=== PATIENT | male | born 1975 | race Caucasian/White ===

== ENCOUNTER 2017-05-28 13:19 | Inpatient (IN) | payer BC ==
[~2017-05-28] VITALS: Ht 182.9 cm; Wt 127.9 kg
[2017-05-28] VITALS (9 sets, daily range): BP systolic 109–142; BP diastolic 79–108; BMI 38.0
--- NOTE | ~2017-05-28 | CN ---
PATIENT NAME:ELICEO GRAY MEDICAL RECORD: [id number] : [birth year] LOCATION:[id number] ADMIT DATE: 05/28/17 ACCOUNT: [id number] CONSULTING PHYSICIAN: KAREL TALLEY MD REFERRING PHYSICIAN: JACKIE SUTTON MD DATE OF CONSULTATION: 05/29/2017 CONSULT REQUESTING PHYSICIAN: Dr. Jackie Sutton. REASON FOR CONSULTATION: Multidrug overdose, hypercapnic hypoxic respiratory failure. HISTORY OF PRESENT ILLNESS: Mr. Gray is a 41-year-old gentleman. Yesterday, he took approximately 30 tablets of Valium and 45 tablet of OxyContin. The patient was having suicide attempt. The patient was brought into the ER. Now, the patient is sleepy, but he is arousable. The detail was obtained by talking to the nursing staff as well as reviewing the patient's note. 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 He also has history of hypertension. PAST SURGICAL HISTORY: He has appendectomy. He has a spine surgery. ALLERGIES: There are no known drug allergies. PRESENT MEDICATIONS: He is on Phenergan, diltiazem, hydralazine, metoprolol, diazepam, OxyContin, and hydrocodone. PERSONAL AND SOCIAL HISTORY: He is a nondrinker. FAMILY HISTORY: Not known. PHYSICAL EXAMINATION: GENERAL: The patient is now comfortable. He is of hearing. BiPAP. The patient is sleepy, but he is arousable. VITAL SIGNS: The blood pressure is 113/84, pulse is 86, respiration is 18, temperature 98.4, and SPO2 is 97% on BiPAP, 30% oxygen. HEENT: Conjunctivae pink, sclerae nonicteric. NECK: Supple, no JVD. CHEST: The chest excursion is minimal on both sides. No wheeze, no rales. HEART: Rate and rhythm regular, normal sound, no murmur. ABDOMEN: Soft. Bowel sounds present. No hepatosplenomegaly. RECTAL: Deferred. EXTREMITIES: No cyanosis, no clubbing, no pedal edema. SKIN: Warm, normal turgor. CENTRAL NERVOUS SYSTEM: There are no obvious cranial nerve abnormalities. The pupils are pinpoint. He is sleepy, but arousable. Follow commands. LABORATORY DATA: CBC: WBC 7.5, hemoglobin 11.9, hematocrit 36.8, platelet count 199. Chemistry: Sodium 139, potassium 4.1, BUN is 13, creatinine 1.2. On arrival, his creatinine was 1.9. AST is 57, ALT is 87, alkaline phosphatase 150 and albumin 3.1. IMPRESSION: 1. Acute hypoxic hypercapnic respiratory failure. CONSULT REPORT [id number] ELICEO GRAY 2. Respiratory acidosis secondary to acute hypoxic hypercapnic respiratory failure. 3. Multidrug overdose of Valium and OxyContin. 4. Suicidal attempt. 5. 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 6. Elevated liver enzymes, most likely secondary to drug overdose. RECOMMENDATIONS: 1. We will continue the BiPAP as required. Narcan and Romazicon as required. 2. DVT and GI ulcer prevention. 3. Teran catheter. 4. Follow up liver enzymes, labs and chest radiograph. At this point, we will watch him conservatively. Dr. Sutton, thank you for involving me in the care of Mr. Gray. Discuss with the family. Critical care time 45 minutes. TRANSINT:[id number] Voice Confirmation ID: [id number] DOCUMENT ID: [id number] KAREL TALLEY MD CC: JACKIE SUTTON MD [id number] DICTATION DATE: 05/29/1744 [employer] INSTRUCTOR: 05/29/17 1703 ADM IN [facility] [address] [place] [address]
[~2017-05-28 13:19] MED LIST: ACETAMINOPHEN325 MG PO; CARDIZEM CD120 MG PO; CELEXA20 MG PO; GABAPENTIN100 MG PO; HYDRALAZINE HCL50 MG PO; HYDROCODONE-APA1 TAB PO; K-DUR20 MEQ PO; LOPRESSOR25 MG PO; METOPROLOL TAR100 M1 PO; OMEPRAZOLE40 MG PO; PHENERGAN25 M1 PO; VALIUM5 MG PO; ZESTRIL20 MG PO
[2017-05-28 14:56] LABS: BASOPHILS 0.1 % (0-2); EOSINOPHILS 0.1 % (0-7); HEMATOCRIT 44.5 % (42.0-54.0); HEMOGLOBIN 14.4 g/dL (13.5-17.5); LYMPHOCYTES 10.9 % (15-50); MCH 30.7 pg (26.0-34.0); MCHC 32.4 g/dL (31.0-37.0); MCV 94.9 fL (80.0-100.0); MONOCYTES 8.3 % (2-11); NEUTROPHILS 79.6 % (40-80); PLATELET COUNT 227 10x3/uL (130-400); RBC 4.69 10x6/uL (4.20-6.10); RDW 14.1 % (11.5-14.5); WBC 9.9 10x3/uL (4.8-10.8)
[2017-05-28 15:20] LABS: ALBUMIN 4.3 g/dL (3.4-5.0); ANION GAP 12.1 mmol/L (8-16); BILIRUBIN - TOTAL 0.72 mg/dL (0.2-1.3); CALCIUM 8.8 mg/dL (8.5-10.1); CARBON DIOXIDE 32.7 mmol/L (21.0-32.0); CREATININE - SERUM 1.9 mg/dL (0.6-1.3); POTASSIUM - SERUM 3.8 mmol/L (3.5-5.1); PROTEIN - SERUM 8.9 g/dL (6.4-8.2)
--- NOTE | 2017-05-28 17:14 | NUR ---
ADMITTED FROM ER PER [facility] TRANSFER SELF TO BED. VERY DIFFICULTY TO GET AWAKE TO ANSWER QUESTIONS BUT WILL FINALLY AWAKE OBEY COMMANDS. ANSWER QUESTIONS. SKIN WARM AND COOL TOUCH. LUNGS CLEAR BILATERALLY. SNORING WHEN ASLEEP. ABD SOFT WITH BOWEL SOUNDS. OXYGEN AT 2 LITERS PER NC. IV RIGHT AC INFUSING WITH NARCAN 2MG IN 500 ML OF NS AT 100 ML HOUR. NS OPEN INFUSING. NO EDEMA NOTED IN EXTREMITIES. LEFT HIM, STATES HE DID A STUPID THING. NEPHKULWINDER FAJARDO IS TO BE HIS EMERGENCY CONTACT HE DOES NOT KNOW HIS PHONE NUMBER HE DOES NOT HAVE HIS PHONE WITH HIM. ONLY PERSONAL ITEMS ARE A CANE AND SHOES PAIR OF SHORTS. HEAD OF BED ELEVATED . DENIES ANY ALLERGIES. NODES HEAD TO QUESTIONS. MONITOR ST. PATIENT HAS LOVE NOT PAIN WRITTEN ON HIS LEFT LEG. LOVE WRITTEN ON RIGHT LEG. NO FAMILY AVAILABLE IN WAITING ROOM
--- NOTE | 2017-05-28 18:54 | NUR ---
PT APNIC AT TIMES, DIFFICULT TO AWAKEN, ABG'S DRAWN. BIPAP PLACED
--- NOTE | 2017-05-28 19:00 | NUR ---
Received patient resting in bed with eyes closed, assessment completed per flowsheet. Patient is AO x4, lethargic and responds to voice. Affect is flat and withdrawn, states "going through divorce" and "meant to " Eyes PERRLA @ 2mm with sluggish response, sclera is white. S1/S2 noted NSR on telemetry with HR 91, rhythmic and regular. Breathing is even and unlabored on 40% BiPAP with O2 sat 98%, lung sounds clear bilateral upper with diminished mid and lower. Abdomen is round and soft with bowel sounds active x4, non-tender. Full ROM all extremities with weakness noted, all pulses palpable with cap refill < 3 sec. PIV R AC x2 20g noted, D5LR @ 75ml / Narcan Drip @ 100ml infusing. Patient denies pain or other needs at this time, all VSS and will continue to monitor.
--- NOTE | 2017-05-28 21:00 | NUR ---
Visitors at bedside, all questions answered to satisfaction. Patient resting in bed on BiPAP, O2 decreased to 30% by RT. Denies pain or other needs at this time, all VSS and will continue to monitor.
--- NOTE | 2017-05-28 23:00 | NUR ---
Reassessment completed per flowsheet, patient resting in bed with eyes closed. S1/S2 noted NSR on telemetry with HR 91, rhythmic and regular. Breathing is even and unlabored on 30% BiPAP with O2 sat 98%. Patient arouses to voice but remains lethargic, AO x4 then returns quickly to sleep. All pulses palpable with cap refill < 3 sec, slight weakness noted all extremities. Denies pain or other needs at this time, all VSS and will continue to monitor.
[2017-05-29] VITALS (25 sets, daily range): BP systolic 100–163; BP diastolic 76–108
--- NOTE | 2017-05-29 01:00 | NUR ---
Patient resting in bed with eyes closed, breathing is even and unlabored on BiPAP 30%. Patient arouses to voice and responds appropriately to questions, but still slightly lethargic and quickly returns to sleep. Patient denies pain or other needs at this time, all VSS and will continue to monitor.
--- NOTE | 2017-05-29 03:00 | NUR ---
Reassessment completed per flowsheet, patient resting in bed with eyes closed. Patient affect is flat and withdrawn, will engage in conversation but remains lethargic and returns to sleep quickly. S1/S2 noted NSR on telemetry with HR 87, rhythmic and regular. Breathing is even and unlabored on BiPAP 30% with O2 sat 98%. Full ROM all extremities with weakness noted, all pulses palpable with cap refill < 3 sec. Denies pain or other needs at this time, all VSS and will continue to monitor.
[2017-05-29 04:36] LABS: BASOPHILS 0.3 % (0-2); EOSINOPHILS 1.7 % (0-7); HEMATOCRIT 36.8 % (42.0-54.0); HEMOGLOBIN 11.9 g/dL (13.5-17.5); IMMATURE GRANULOCYTES 0.7 % (0-5); MCH 30.6 pg (26.0-34.0); MCHC 32.3 g/dL (31.0-37.0); MCV 94.6 fL (80.0-100.0); MEAN PLATELET VOLUME 10.5 fL (7.4-10.4); MONOCYTES 9.3 % (2-11); PLATELET COUNT 199 10x3/uL (130-400); RBC 3.89 10x6/uL (4.20-6.10); RDW 13.9 % (11.5-14.5); WBC 7.5 10x3/uL (4.8-10.8)
[2017-05-29 04:56] LABS: ALBUMIN 3.1 g/dL (3.4-5.0); ANION GAP 9.2 mmol/L (8-16); BILIRUBIN - TOTAL 0.45 mg/dL (0.2-1.3); CALCIUM 8.1 mg/dL (8.5-10.1); CARBON DIOXIDE 29.9 mmol/L (21.0-32.0); CREATININE - SERUM 1.2 mg/dL (0.6-1.3); POTASSIUM - SERUM 4.1 mmol/L (3.5-5.1); PROTEIN - SERUM 6.8 g/dL (6.4-8.2)
--- NOTE | 2017-05-29 09:49 | NUR ---
DR TALLEY HERE, REP[ORTED THAT PT HAS NOT VOIDED. ORDERED TO PLACE FCATH. PT NOW IS ATTEMPTING TO USE URINAL.
--- NOTE | 2017-05-29 10:37 | NUR ---
Patient Name: ELICEO GRAY Admission Status: ER Accout number: [id number] Admission Date: 05-28-2017 : 1975 Admission Diagnosis: Attending: HUYEN Current LOS: 1 Planned Disposition: Psych facility Primary Insurance: UNINSURED DISCOUNT PLAN Discharge Planning Comments: Referral called to Heather with [facility] to assist with psych placement. Heather will come evaluate patient today. CM will follow & assist as needed. An/Syq 13 Nav/C2 Operator: Sarah Baptiste
--- NOTE | 2017-05-29 10:51 | NUR ---
PT IS UNABLE TO VOID, ASSISTED TO STANDING POSITION AND PT STILL UNABLE TO VOID, FC PLACED.
[2017-05-29 12:14] LABS: APPEARANCE HAZY (CLEAR); BILIRUBIN NEGATIVE (NEGATIVE); COLOR YELLOW (YELLOW); GLUCOSE NEGATIVE (NEGATIVE); KETONE NEGATIVE (NEGATIVE); LEUKOCYTE ESTERASE NEGATIVE (NEGATIVE); NITRITE NEGATIVE (NEGATIVE); PROTEIN NEGATIVE (NEGATIVE); SPECIFIC GRAVITY 1.025 (1.005-1.020); UROBILINOGEN NORMAL (NORMAL)
[2017-05-29 12:20] LABS: BACTERIA FEW /hpf (NONE SEEN); EPITHELIAL CELLS OCC /hpf (0-5); GRANULAR CAST 0-5 /lpf (NONE SEEN); MUCUS >1+ /lpf (NONE SEEN); RED CELLS - URINE 0-5 /hpf (0-5); WHITE CELLS - URINE 0-5 /hpf (0-5)
--- NOTE | 2017-05-29 14:55 | NUR ---
Patient Name: YASSINE LORENZANA Admission Status: ER Accout number: [id number] Admission Date: 05-29-2017 : 09-25-1977 Admission Diagnosis:POISONING BY OTH ANTIPSYCHOT/NEUROLEPT, SELF-HARM, INIT Attending: JAZLYN Current LOS: 1 Anticipated DC Date: 05-30-2017 Planned Disposition: Psych facility Primary Insurance: UNINSURED DISCOUNT PLAN Discharge Planning Comments: CM met with patient. He states he lives at home with his , Triny. He reports he is independent with all ADL's & IADL's. Discussed inpatient psych options with him. He is agreeable to go. He would like to stay local if possible. Referral faxed to [facility]. Waiting determination. CM will follow. Regional Driver: Sarah Baptiste
--- NOTE | 2017-05-29 14:56 | NUR ---
Rec'd call from [facility] with [facility] - Patient has been accepted and can transfer this afternoon via ambulance. Nursing to call report to [phone]. [address] Mena. DC order rec'd.
--- NOTE | 2017-05-29 15:01 | NUR ---
1200- PT AWAKENS EASILY, VSS, BIPAP TAKEN OFF, PT DRINKS WATER W/O PROBLEMS, BIPAP PLACED BACK ON AND PT FALLS ASLEEP QUICKLY.
--- NOTE | 2017-05-29 15:03 | NUR ---
1430- BIPAP TAKEN OFF AND PT SPOKE TO DR STOUT. BIPAP REPLACED AND PT DRIFTS OFF BACK TO SLEEP.
--- NOTE | 2017-05-29 19:00 | NUR ---
CARE RESUMED AND SHIFT ASSESSMENT COMPLETE. PATIENT RESTING WITH EYES CLOSED, AWAKENS TO VOICE. PATIENT IS ALERT AND ORIENTED X4. VSS. ON 2L NC. SEE FLOWSHEET FOR MORE DETAILS. CL IN REACH, BED IN LOW POSISTION AND BED ALARM ON. DENIES NEED AT THIS TIME.
--- NOTE | 2017-05-29 20:30 | NUR ---
COWORKER, GRANDFATHER, AND NIECE CALLED FOR UPDATE, ALL PROVIDED PASSWORD, UPDATE PROVIDED. MESSAGES REPORTED TO PATIENT.
--- NOTE | 2017-05-29 21:00 | NUR ---
FAMILY HERE FOR VISITATION.
--- NOTE | 2017-05-29 21:00 | NUR ---
NO VISITORS AT THIS TIME.
--- NOTE | 2017-05-29 23:05 | NUR ---
REASSESSMENT COMPLETE, NO ACUTE CHANGES, SEE FLOWSHEET.
[2017-05-30] VITALS (16 sets, daily range): BP systolic 121–164; BP diastolic 78–105; Ht 182.9 cm; Wt 127.9 kg
--- NOTE | 2017-05-30 01:00 | NUR ---
PATIENT RESTING WELL WITH EYES CLOSED, RR EVEN AND NONLABORED. 98% O2 SAT WITH 2L O2 VIA NC.
--- NOTE | 2017-05-30 03:00 | NUR ---
REASSESSMENT COMPLETE, SEE FLOWSHEET. NO CHANGES.
--- NOTE | 2017-05-30 05:00 | NUR ---
PATIENT RESTING IN BED, REQUESTS FRESH ICE WATER. PROVIDED.
[2017-05-30 05:22] LABS: BASOPHILS 0.2 % (0-2); EOSINOPHILS 1.8 % (0-7); HEMATOCRIT 37.1 % (42.0-54.0); HEMOGLOBIN 12.5 g/dL (13.5-17.5); IMMATURE GRANULOCYTES 0.6 % (0-5); MCH 30.8 pg (26.0-34.0); MCHC 33.7 g/dL (31.0-37.0); MEAN PLATELET VOLUME 10.8 fL (7.4-10.4); MONOCYTES 8.9 % (2-11); NEUTROPHILS 53.5 % (40-80); PLATELET COUNT 190 10x3/uL (130-400); RBC 4.06 10x6/uL (4.20-6.10); WBC 6.7 10x3/uL (4.8-10.8)
[2017-05-30 05:26] LABS: MCV 91.4 fL (80.0-100.0)
[2017-05-30 05:37] LABS: ALBUMIN 3.1 g/dL (3.4-5.0); ALKALINE PHOSPHATASE 117 U/L (46-116); ALT (SGPT) 74 U/L (10-68); BILIRUBIN - TOTAL 0.81 mg/dL (0.2-1.3); CALC OSMOLALITY 270 mosm/kg (275-300); CALCIUM 8.4 mg/dL (8.5-10.1); CARBON DIOXIDE 33.4 mmol/L (21.0-32.0); CHLORIDE - SERUM 100 mmol/L (98-107); CREATININE - SERUM 1.1 mg/dL (0.6-1.3); GLUCOSE 101 mg/dL (74-106); POTASSIUM - SERUM 3.8 mmol/L (3.5-5.1); PROTEIN - SERUM 6.9 g/dL (6.4-8.2); SODIUM 136 mmol/L (136-145); UREA NITROGEN 10 mg/dL (7-18); eGFR NON AFRICAN AMERICAN 79 mL/min (90-120)
--- NOTE | 2017-05-30 06:00 | NUR ---
MOTHER AT BEDSIDE, UPDATE PROVIDED.
--- NOTE | 2017-05-30 07:10 | NUR ---
PATIENT NOW ALERT AND VERY AWAKE. STATES HE WANTS THE BRIONES OUT THAT IT IS BOTHERING HIM. 10CC BALLOON DEFALATED AND BRIONES REMOVED. REPORTED TO DAY SHIFT NURSE. WILL MONITOR URINE OUTPUT. URINAL PROVIDED.
--- NOTE | 2017-05-30 10:54 | NUR ---
* Is the patient Alert and Oriented? Yes 0 * PCP Dr. Concepcion 0 * Pharmacy [facility] [address] 0 * Preadmission Environment Home Alone 0 * List name and contact numbers for known caregivers / representatives who currently or will assist patient after discharge: Grandparents: Domingo Hardy [phone] Mother Maddie Whittington [phone] 0 * Additional services required to return to the preadmission environment? Yes 0 * Can the patient safely return to the preadmission environment? No 0 * Has this patient been hospitalized within the prior 30 days at any hospital? No Patient Name: ELICEO GRAY Admission Status: ER Accout number: [id number] Admission Date: 05-28-2017 : 1975 Admission Diagnosis:TOXIC EFFECT OF UNSP SUBSTANCE, ACCIDENTAL, INIT Attending: HUYEN Current LOS: 2 Planned Disposition: Psych facility Primary Insurance: UNINSURED DISCOUNT PLAN Discharge Planning Comments: CM met with patient to assess dc plans/needs. He is alert & oriented x 3. Patient states he lives alone & is independent with all ADL's & IADL's. 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 He is tearful regarding his current situation. Discussed inpatient psych options. He is in agreement to placement. He prefers not to go to [facility] - he states his spouse has been there in the past & they haven't helped her. Will send referral to [facility]. CM will follow. Silver Miner: Sarah Baptiste
--- NOTE | 2017-05-30 11:17 | NUR ---
Patient [facility]. Notified business office - will hold off on sending referral until information obtained.
--- NOTE | 2017-05-30 11:42 | NUR ---
RECIEVED REPORT FROM DAVID AT THIS TIME. NO ACUTE DISTRESS NOTED. WILL CONTINUE PLAN OF CARE.
--- NOTE | 2017-05-30 14:06 | NUR ---
UP IN BED WATCHING TV AT THIS TIME. NO ACUTE DISTRESS NOTED. WILL CONTINUE PLAN OF CARE.
--- NOTE | 2017-05-30 15:28 | NUR ---
UP IN BED AWAKE AT THIS TIME VISITING WITH VISITORS. NO ACUTE DISTRESS NOTED. WILL CONTINUE PLAN OF CARE.
--- NOTE | 2017-05-30 18:52 | NUR ---
CALLED REPORT TO ALISA LOCKE RN, FOR PSYCH PLACEMENT TO [facility] IN [place]. PT WILL BE ACCEPTED BY DR HAYNES. NO ACUTE DISTRESS NOTED. WILL CONTINUE PLAN OF CARE.
--- NOTE | 2017-05-30 19:00 | NUR ---
PATIENT SITTING UP IN BED AWAITING TRANSFER FOR PSYCH PLACEMENT. IN GOOD SPIRITS. PATIENT A&O, ON ROOM AIR. LUNG SOUNDS CLEAR. NSR ON MONITOR WITH RATE OF 86. VOIDING WELL SINCE BRIONES REMOVED TODAY. PERIPHERAL PULSES +2. PERIPHERAL IV'S REMOVED X2. TIPS INTACT. DENIES NEED AT THIS TIME.
--- NOTE | 2017-05-30 21:00 | NUR ---
FAMILY AT BEDSIDE. DENY NEED AT THIS TIME.
--- NOTE | 2017-05-30 21:45 | NUR ---
[facility]S HERE TO PICK PATIENT UP.
[2017-05-30] MEDS ORDERED: LOVENOX40 MG/0.4 SC (21:46)
[2017-05-30] MEDS ORDERED: CATAPRES0.1 MG PO (21:47)
[2017-05-30] MEDS ORDERED: CYMBALTA30 MG PO (21:48)
[2017-05-30] MEDS ORDERED: CYMBALTA60 MG PO (21:49)
[2017-05-30] MEDS ORDERED: TORADOL30 MG/ML IV (21:50)
[2017-05-30] MEDS ORDERED: PROTONIX I40 MG/VIAL IV (21:50)
--- NOTE | 2017-06-02 13:11 | CN ---
PATIENT NAME:ELICEO GRAY MEDICAL RECORD: [id number] : [birth year] LOCATION:[facility].2303 ADMIT DATE: 05/28/17 ACCOUNT: [id number] CONSULTING PHYSICIAN: CAMPBELL JOHNSON MD REFERRING PHYSICIAN: JACKIE SUTTON MD DATE OF CONSULTATION: 05/29/2017 IDENTIFYING DATA: The patient is 41 years old and he is admitted to the hospital secondary to a polysubstance overdose. Apparently, he took a large number of hydrocodone and Valium. At that time, he did it with the intention of killing himself after he was upset or distressed about his leaving him. He now pauses when asked about suicidality, stares off for a long moment and then says he is not really suicidal. He adamantly denies any substance abuse and feels that there is nothing inappropriate about taking narcotics long-term for chronic back pain even though he does have a very physical job. He also does not think there is anything wrong with mixing this with the Valium. I do not know if they are prescribed by the same doctor. The patient truly is profoundly depressed and is very much minimizing this entire event. He is agreeable to psychiatric care. MENTAL STATUS EXAMINATION: The patient is awake, alert and oriented to person, place and time and is mildly mistaken about the circumstances. His mood is depressed. His affect is constricted. Thought processes are circumstantial. Memory, concentration and abstraction abilities are moderately impaired and he denies any active intent to harm himself or others, although it is not very convincing and he denies psychotic symptoms. ASSESSMENT: 1. Major depression, severe, single episode without psychotic features. 2. Rule out polysubstance abuse. 3. Rule out personality disorder. PLAN: The patient at this time is in the intensive care unit on oxygen having taken a couple of bottles full of Valium and narcotic. It is clear that he is under acute distress and he still displaying this distress and even when asked about being suicidal, there is a long pause before he very unconvincingly denies it. I think the overwhelming problems this patient has even though leaving him is relatively acute, make it unrealistic to manage him in an outpatient setting or more accurately unsafe to manage him in an outpatient setting and I am going to recommend inpatient psychiatric care once medically stabilized. The patient insists he does not have a substance abuse problem. He cannot say that is incorrect, but I have serious doubts about that and I do not think that it would be appropriate at this point to send him to substance abuse treatment without going to the inpatient psychiatric care initially. Obviously, he needs to be watched for withdrawal symptoms over the next couple of days. TRANSINT:[id number] Voice Confirmation ID: [id number] DOCUMENT ID: [id number] CONSULT REPORT [id number] ELICEO GRAY PETER MD at 1311 CC: [id number] DICTATION DATE: 05/29/17 1424 DOCUMENT ADVISOR: 05/29/171950 DIS IN 05/30/17 [address] [place] [address]
== END 2017-05-30 22:00 | disposition short-term general hospital (02) | DRG 917 ==
LOC: D.ER 13:19 → D.ICU 15:05
PROVIDERS: Emergency Medicine; ADMIT Family Medicine
PROC: 5A09457 Assistance with Respiratory Ventilation, 24-96 Consecutive Hours, Continuous Positive Airway Pressure (ICD-10-PCS; principal; 2017-05-28)
DX: T42.4X2A Poisoning by benzodiazepines, intentional self-harm, initial encounter (principal); J96.01 Acute respiratory failure with hypoxia; N17.9 Acute kidney failure, unspecified; F32.2 Major depressive disorder, single episode, severe without psychotic features; E87.2 Acidosis; R94.5 Abnormal results of liver function studies; D64.9 Anemia, unspecified; G89.29 Other chronic pain; T40.2X2A Poisoning by other opioids, intentional self-harm, initial encounter; Z72.0 Tobacco use